=== PATIENT | male | born 1980 | race Caucasian/White ===

== ENCOUNTER 2017-11-18 12:39 | Emergency (ER) | payer OTHER ==
[~2017-11-18] VITALS: Ht 172.7 cm; Wt 72.1 kg
[~2017-11-18 12:39] MED LIST: AMPH15TA2 PO
[2017-11-18 12:51] VITALS: TEMP 36.4; Ht 172.7 cm; Wt 72.1 kg
[2017-11-18] MEDS ORDERED: LIDOCAINE/EPINEPHRINE 1% 20 ML VIAL INFIL ONE (13:15)
[2017-11-18] MEDS ORDERED: METH5TAB2 PO (13:19)
[2017-11-18] MEDS ORDERED: AMPH10TA2 PO (13:19)
[2017-11-18 13:51] VITALS: BP 130/80; PULSE 67; O2SAT 98
--- NOTE | 2017-11-20 06:15 | EMERGENCY ROOM VISIT NOTE ---
ED Visit Note First contact with patient: 12:58 Chief Complaint: Cut my left leg. History of Present Illness: Mr. Winslow is a 37-year-old white male who ambulates into the ED accompanied by female friend complaining of left lower leg laceration. Patient reports approximately one hour ago he was taken out the trash for his grandmother. He kicked the bag and did not realize there was a broken glass in the bag. The glass broke through the bag and he sustained a laceration over the lateral aspect of the left lower leg. He reports immediately started bleeding and he observed some spurting of blood. While in triage nurses report they had removed the Band-Aid to observe the laceration and they also reported spurting. Patient did not wash the wound prior to arrival at the hospital. Currently patient denies any symptoms associated with his laceration including pain, left leg/foot weakness/numbness/tingling. Review of Systems: As noted above in history of present illness. Past Medical History: Opiate drug abuse. Current Medications: Methadone Allergies to Medications: Oxycodone, codeine, acetaminophen; patient reports he has taken these medications in the past which has caused him to have nausea and vomiting but no skin eruptions or airway issues. Social History: Patient is not employed; he feels safe in his home environment; he admits to tobacco use and denies alcohol use. Tetanus Immunization Status: Patient reports up-to-date. Physical Examination: Vital Signs: Date Time Temp Pulse Resp B/P (MAP) Pulse Ox O2 Delivery O2 Flow Rate FiO2 11/18/17 13:51 67 16 130/80 98 11/18/17 12:51 36.4 88 18 142/88 98 Room Air GENERAL: 37-year-old male in no acute distress, nontoxic-appearing, afebrile and hemodynamically stable. NEUROLOGICAL: Awake, alert and oriented to person, place and time. Answering questions appropriately and following commands. Normal gait. Good hand eye coordination. SKIN: Warm, dry and pink. Left Lower Leg over the mid left lower leg over the lateral surface patient has a 4.2 cm full-thickness laceration. Bleeding controlled. LEFT LOWER EXTREMITY: No gross bony deformity. No shortening or malrotation. No tenderness over the knee, ankle or foot. Mild tenderness over his laceration. During repair patient's wound was extensively explored and I was not able to observe any arterial involvement and I did not have any squirting of blood. Patient is full range of motion of the knee and the ankle against resistance. Dorsalis pedis and anterior tibialis pulses are intact. Capillary refill is brisk. He was able to distinguish light sensations through all dermatomes of the foot. ED Course: Patient is assessed as noted above. Patient's medication list was reviewed. Wound Repair: Complexity: Basic Verbal consent was obtained after the risks and benefits were explained. The skin was prepped with betadine and a sterile field set. Wound edges of the wound was anesthetized with 3.8 ml buffered 1% lidocaine with epinephrine. The wound was explored for foreign bodies and none found and no arterial damage was found. Copious irrigation was performed using sterile saline. With direct pressure the bleeding subsided. Debridement was not performed. The wound edges were approximated using multilayer closure technique. The inner layer was closed with 5-0 Vicryl with 3 simple interrupted sutures and the cutaneous layer was closed with 4-0 Ethilon and 11 simple interrupted sutures. Hemostasis and excellent approximation was achieved. Antibacterial ointment and a sterile dressing applied. No complications and the patient tolerated the procedure well. Patient was educated about tonight's findings and instructed on his treatment plan; he verbalizes understanding and agreement with this plan. Clinical Impression: Laceration of the left lower leg. Disposition: Patient discharged home in stable condition; prior to departure he was reassessed and subjectively reported he was pain and symptom-free. Plan: Comfort measures, wound care, and signs of infection were discussed with the patient. Patient was encouraged to follow-up with PCP or return to the ED for signs of infection and/or suture removal in 10-12 days.
== END 2017-11-18 13:55 | disposition home or self-care (01) ==
LOC: C.EDB 12:42 → C.EDD 13:55
DX: S81.812A Laceration without foreign body, left lower leg, initial encounter (principal); W25.XXXA Contact with sharp glass, initial encounter; Y93.89 Activity, other specified; Y92.009 Unspecified place in unspecified non-institutional (private) residence as the place of occurrence of the external cause; F11.10 Opioid abuse, uncomplicated